=== PATIENT | male | born 1990 | race Two or more races ===

== ENCOUNTER 2023-08-31 16:21 | Inpatient (IN) | payer MEDICAID ==
[~2023-08-31] VITALS: Ht 177.8 cm; Wt 92.1 kg
[2023-08-31] MEDS: LEVETIRACETAM 500MG PREMIX 100 ML IV ONE (16:45)
[2023-08-31] MEDS ORDERED: LEVETIRACETAM 500MG PREMIX 100 ML IV ONE (16:45)
[2023-08-31 18:43] LABS: HEMOGLOBIN. 18.7 g/dL (14.0-18.0); MEAN CORPUSCULAR HEMOGLOBIN 30.1 pg (28.0-32.0); MEAN CORPUSCULAR VOLUME 88.4 fL (80.0-94.0); MEAN PLATELET VOLUME 9.3 fl (7.4-10.4); PLATELET 392 x1000/uL (130-400); RED BLOOD CELL COUNT 6.22 mill/uL (4.7-6.1); RED CELL DISTRIBUTION WIDTH 14.5 % (11.6-14.6)
[2023-08-31 18:44] LABS: DIFFERENTIAL COMMENT 1
[2023-08-31 18:48] LABS: CHLORIDE 98 mEq/L (98-107); POTASSIUM 3.5 mEq/L (3.5-5.1); SODIUM 138 mEq/L (136-145)
[2023-08-31 18:49] LABS: CARBON DIOXIDE 23 mEq/L (21-32)
[2023-08-31 18:50] LABS: CALCIUM 9.4 mg/dL (8.7-10.4)
[2023-08-31 18:54] LABS: CREATININE 3.3 mg/dL (0.6-1.3)
[2023-08-31 18:55] LABS: GLUCOSE 120 mg/dL (70-105); UREA NITROGEN BLOOD 68 mg/dL (9-23)
[2023-08-31 18:56] LABS: ALANINE AMINOTRANSFERASE 194 IU/L (10-49); ALBUMIN 5.1 g/dL (3.2-4.8); ASPARTATE AMINOTRANSFERASE 288 IU/L (<34); LACTIC ACID 2.5 mmol/L (0.4-2.0)
[2023-08-31 18:57] LABS: BILIRUBIN TOTAL 0.7 mg/dL (0.1-1.0); PROTEIN TOTAL 9.5 g/dL (6.0-8.3)
[2023-08-31 19:07] LABS: TROPONIN I HIGH SENSITIVITY 227 ng/L (3.0-53)
[2023-08-31 19:35] LABS: PLATELET ESTIMATE NORMAL
[2023-08-31] MEDS: LEVETIRACETAM 500MG PREMIX 100 ML IV NR (19:36)
[2023-08-31] MEDS: SODIUM CHLORIDE 0.9% 1000ML BAG (SEPSIS BOLUS) IV ONE (19:53)
[2023-08-31] MEDS: ASPIRIN 325MG EC TABLET PO ONE (19:56)
[2023-08-31] MEDS: CEFTRIAXONE 1GM/50ML 50 ML IV ONE (20:40)
[2023-08-31] MEDS ORDERED: CLINDAMYCIN 600 MG in DEXTROSE 5% WATER 50 ML IV ONE (20:45)
[2023-08-31] MEDS ORDERED: CLINDAMYCIN 600MG PREMIX 50 ML IV NR (21:00)
[2023-08-31] MEDS: LORAZEPAM 2MG/ML INJ IV ONE (22:13)
[2023-08-31 23:06] VITALS: BP 144/97; PULSE 106; RESP 18; TEMP 97
[2023-08-31] MEDS ORDERED: LEVE1000 PO (23:49)
[2023-09-01] MEDS: SODIUM CHLORIDE 0.9% 1,000 ML IV SCH (00:05)
[2023-09-01 00:25] LABS: HEMATOCRIT 57.4 % (42.0-52.0); HEMOGLOBIN 19.3 g/dL (14.0-18.0); MEAN CORPUSCULAR HEMOGLOBIN 30.2 pg (28.0-32.0); MEAN CORPUSCULAR HGB CONC 33.7 g/dL (31.0-37.0); MEAN CORPUSCULAR VOLUME 89.7 fL (80.0-94.0); RED CELL DISTRIBUTION WIDTH 14.4 % (11.6-14.6); WHITE BLOOD COUNT 24.7 x1000/uL (4.5-11.0)
[2023-09-01 00:34] VITALS: BP 144/97; PULSE 106; RESP 18; TEMP 97
[2023-09-01 02:35] LABS: CLARITY URINE CLOUDY (CLEAR); COLOR URINE YELLOW (YELLOW); GLUCOSE URINE NEGATIVE (NEGATIVE); KETONES URINE 1+ (NEGATIVE); LEUKOCYTE ESTERASE URINE NEGATIVE (NEGATIVE); NITRITE URINE NEGATIVE (NEGATIVE); OCCULT BLOOD URINE 2+ (NEGATIVE); PH URINE 5.5 (4.5-8.0); PROTEIN URINE 1+ (NEGATIVE); SPECIFIC GRAVITY URINE 1.014 (1.005-1.030); UROBILINOGEN URINE 0.2 E.U./dL (0.2-1.0)
[2023-09-01 02:41] LABS: *AMPHETAMINES SCREEN URINE NEGATIVE (NEGATIVE)
[2023-09-01 02:42] LABS: *BARBITURATES SCREEN URINE NEGATIVE (NEGATIVE); *BENZODIAZEPINES SCREEN URINE PRESUMPTIVE POSITIVE (NEGATIVE); *COCAINE SCREEN URINE NEGATIVE (NEGATIVE); CANNABINOID URINE SCREEN PRESUMPTIVE POSITIVE (NEGATIVE); ECSTASY MDMA SCREEN URINE NEGATIVE (NEGATIVE); METHADONE URINE SCREEN Neg (NEGATIVE); OPIATES URINE SCREEN NEGATIVE (NEGATIVE); PHENCYCLIDINE URINE SCREEN NEGATIVE (NEGATIVE)
[2023-09-01 04:00] VITALS: BP 164/94; PULSE 112; RESP 16; TEMP 97.7
[2023-09-01 05:17] LABS: PLATELET 348 x1000/uL (130-400)
[2023-09-01 05:50] LABS: HEMATOCRIT 51.8 % (42.0-52.0); HEMOGLOBIN 17.7 g/dL (14.0-18.0); MEAN CORPUSCULAR HEMOGLOBIN 29.8 pg (28.0-32.0); MEAN CORPUSCULAR HGB CONC 34.2 g/dL (31.0-37.0); MEAN CORPUSCULAR VOLUME 87.3 fL (80.0-94.0); PLATELET 280 x1000/uL (130-400); RED BLOOD CELL COUNT 5.93 mill/uL (4.7-6.1); WHITE BLOOD COUNT 19.5 x1000/uL (4.5-11.0)
[2023-09-01 06:00] LABS: CALCIUM 8.5 mg/dL (8.7-10.4); POTASSIUM 3.5 mEq/L (3.5-5.1)
[2023-09-01 06:06] LABS: CREATININE 2.5 mg/dL (0.6-1.3)
[2023-09-01 08:00] VITALS: BP 141/88; PULSE 59; RESP 17; TEMP 97.9
[2023-09-01] MEDS: LEVETIRACETAM 500MG TABLET PO SCH (08:31)
[2023-09-01] MEDS: AMLODIPINE 10MG TABLET PO SCH (08:32)
[2023-09-01 08:50] LABS: URIC ACID CRYSTALS URINE 3+ /lpf
[2023-09-01 08:51] LABS: BACTERIA URINE TRACE; RBC URINE 0-2 /hpf (0-2); SQUAMOUS EPITHELIAL CELL URINE RARE /lpf (RARE/1+); WBC URINE 0-2 /hpf (0-2)
[2023-09-01] MEDS ORDERED: LEVETIRACETAM 1000MG PREMIX 100 ML IV SCH (09:00)
[2023-09-01 12:00] VITALS: BP 135/94; PULSE 97; RESP 20; TEMP 97.1
[2023-09-01] MEDS ORDERED: LEVE1000 PO (13:09)
[2023-09-01 16:00] VITALS: BP 154/94; PULSE 90; RESP 20; TEMP 98.2
[2023-09-01 18:07] LABS: CREATINE KINASE 22953 IU/L (46-171)
[2023-09-01 20:00] VITALS: BP 119/81; PULSE 68; RESP 20; TEMP 98
[2023-09-01] MEDS: LORAZEPAM 2MG/ML INJ IV PRN (20:07)
[2023-09-01] MEDS: SODIUM CHLORIDE 0.9% 1,000 ML IV NR (23:28)
[2023-09-02] VITALS (7 sets, daily range): BP systolic 114–142; BP diastolic 57–88; PULSE 90–132; RESP 18–28; TEMP 97.6–98.5
[2023-09-02 08:11] LABS: BASOPHILS % 0.2 % (0.0-2.0); EOSINOPHILS % 0.2 % (0.0-5.0); HEMATOCRIT. 33.2 % (42.0-52.0); HEMOGLOBIN. 11.4 g/dL (14.0-18.0); LYMPHOCYTES % 20.9 % (20.0-50.0); MEAN CORPUSCULAR HEMOGLOBIN 30.1 pg (28.0-32.0); MEAN CORPUSCULAR HGB CONC 34.2 g/dL (31.0-37.0); MEAN CORPUSCULAR VOLUME 88.1 fL (80.0-94.0); MEAN PLATELET VOLUME 9.7 fl (7.4-10.4); MONOCYTES % 9.9 % (2.0-8.0); NEUTROPHILS % 68.8 % (40.0-76.0); PLATELET 290 x1000/uL (130-400); RED BLOOD CELL COUNT 3.77 mill/uL (4.7-6.1); RED CELL DISTRIBUTION WIDTH 13.8 % (11.6-14.6); WHITE BLOOD COUNT 18.1 x1000/uL (4.5-11.0)
[2023-09-02 08:37] LABS: POTASSIUM 3.8 mEq/L (3.5-5.1)
[2023-09-02 08:39] LABS: CALCIUM 8.1 mg/dL (8.7-10.4)
[2023-09-02 08:49] LABS: CREATININE 1.6 mg/dL (0.6-1.3)
[2023-09-02] MEDS ORDERED: SODIUM CHLORIDE 0.9% 250 ML IV ONE (09:45)
[2023-09-02] MEDS: SODIUM CHLORIDE 0.9% 250 ML IV ONE (09:55)
[2023-09-02] MEDS: PANTOPRAZOLE SODIUM 40 MG/VIAL IV SCH (11:32)
[2023-09-02] MEDS: METOPROLOL TARTRATE 25MG TABLET PO SCH (12:04)
[2023-09-02 13:06] LABS: CREATINE KINASE 6642 IU/L (46-171)
[2023-09-03] VITALS (12 sets, daily range): BP systolic 91–152; BP diastolic 56–98; PULSE 98–129; RESP 18–31; TEMP 97.4–98.4
[2023-09-03 07:28] LABS: CARBON DIOXIDE 23 mEq/L (21-32); CHLORIDE 107 mEq/L (98-107); POTASSIUM 3.5 mEq/L (3.5-5.1); SODIUM 141 mEq/L (136-145)
[2023-09-03 07:29] LABS: CALCIUM 8.4 mg/dL (8.7-10.4)
[2023-09-03 07:31] LABS: BASOPHILS % 0.2 % (0.0-2.0); EOSINOPHILS % 0.8 % (0.0-5.0); LYMPHOCYTES % 29.8 % (20.0-50.0); MEAN CORPUSCULAR HEMOGLOBIN 29.8 pg (28.0-32.0); MEAN CORPUSCULAR VOLUME 90.2 fL (80.0-94.0); MONOCYTES % 7.5 % (2.0-8.0); NEUTROPHILS % 61.7 % (40.0-76.0); PLATELET 232 x1000/uL (130-400); RED BLOOD CELL COUNT 2.99 mill/uL (4.7-6.1); RED CELL DISTRIBUTION WIDTH 13.8 % (11.6-14.6); WHITE BLOOD COUNT 16.6 x1000/uL (4.5-11.0)
[2023-09-03 07:33] LABS: IRON 59 ug/dL (65-175)
[2023-09-03 07:34] LABS: CREATININE 1.3 mg/dL (0.6-1.3); GLUCOSE 92 mg/dL (70-105); UREA NITROGEN BLOOD 21 mg/dL (9-23)
[2023-09-03 07:36] LABS: TOTAL IRON BINDING CAPACITY 135 ug/dl (250-425)
[2023-09-03 08:21] LABS: FERRITIN 250 ng/mL (22-322)
[2023-09-03 08:23] LABS: VITAMIN B12 SERUM 220 pg/mL (211-911)
[2023-09-03 08:46] LABS: HEMOGLOBIN. 8.9 g/dL (14.0-18.0)
[2023-09-03] MEDS: SUCRALFATE 1G TABLET PO SCH (11:39)
[2023-09-03] MEDS: CYANOCOBALAMIN 1000MCG/ML VIAL IM SCH (11:39)
[2023-09-03] MEDS ORDERED: LEVOFLOXACIN 500MG PREMIX 100 ML IV SCH (12:30)
[2023-09-03 13:02] LABS: INR 1.1; PROTHROMBIN TIME 11.9 sec (9.6-11.0)
[2023-09-03] MEDS: LEVOFLOXACIN 750MG PREMIX 150 ML IV SCH (14:48)
[2023-09-03 15:01] LABS: PHOSPHORUS 2.3 mg/dL (2.5-4.9)
[2023-09-03] MEDS ORDERED: NALOXONE HCL 0.4MG/ML VIAL IV PRN (20:15)
[2023-09-03] MEDS: HYDROCODONE/ACETAMINOPHEN 10/325MG TABLET PO PRN (20:37)
[2023-09-04] VITALS (16 sets, daily range): BP systolic 104–148; BP diastolic 56–102; PULSE 89–119; RESP 18–29; TEMP 97.3–98.7; O2SAT 96
[2023-09-04 07:13] LABS: BASOPHILS % 0.2 % (0.0-2.0); EOSINOPHILS % 2.3 % (0.0-5.0); HEMATOCRIT. 21.5 % (42.0-52.0); HEMOGLOBIN. 7.4 g/dL (14.0-18.0); LYMPHOCYTES % 36.7 % (20.0-50.0); MEAN CORPUSCULAR HEMOGLOBIN 29.8 pg (28.0-32.0); MEAN CORPUSCULAR HGB CONC 34.3 g/dL (31.0-37.0); MEAN CORPUSCULAR VOLUME 86.9 fL (80.0-94.0); MEAN PLATELET VOLUME 9.1 fl (7.4-10.4); MONOCYTES % 8.2 % (2.0-8.0); NEUTROPHILS % 52.6 % (40.0-76.0); PLATELET 257 x1000/uL (130-400); RED BLOOD CELL COUNT 2.48 mill/uL (4.7-6.1); RED CELL DISTRIBUTION WIDTH 13.4 % (11.6-14.6); WHITE BLOOD COUNT 13.1 x1000/uL (4.5-11.0)
[2023-09-04 07:17] LABS: CARBON DIOXIDE 24 mEq/L (21-32); CHLORIDE 106 mEq/L (98-107); POTASSIUM 3.5 mEq/L (3.5-5.1); SODIUM 139 mEq/L (136-145)
[2023-09-04 07:18] LABS: CALCIUM 7.9 mg/dL (8.7-10.4)
[2023-09-04 07:23] LABS: CREATININE 1.2 mg/dL (0.6-1.3); GLUCOSE 90 mg/dL (70-105); UREA NITROGEN BLOOD 13 mg/dL (9-23)
[2023-09-04] MEDS ORDERED: SUCR1TAB MT (08:03)
[2023-09-04] MEDS ORDERED: OMEP40CA20 MT (08:03)
== END 2023-09-04 16:36 | disposition home or self-care (01) | DRG 241 ==
LOC: ER 16:21 → 8WST 21:45 → 5EST 09-02 11:00
PROVIDERS: ADMIT Internal Medicine; ATTEND Internal Medicine
PROC: 30233N1 Transfusion of Nonautologous Red Blood Cells into Peripheral Vein, Percutaneous Approach (ICD-10-PCS; principal; 2023-09-04)
DX: K26.4 Chronic or unspecified duodenal ulcer with hemorrhage (principal); N17.0 Acute kidney failure with tubular necrosis; G40.409 Other generalized epilepsy and epileptic syndromes, not intractable, without status epilepticus; M62.82 Rhabdomyolysis; I10 Essential (primary) hypertension; D64.9 Anemia, unspecified; F19.10 Other psychoactive substance abuse, uncomplicated; F12.10 Cannabis abuse, uncomplicated; F17.210 Nicotine dependence, cigarettes, uncomplicated; D72.829 Elevated white blood cell count, unspecified; Z90.49 Acquired absence of other specified parts of digestive tract
CPT/HCPCS: 36415; 71045; 74176; 76770; 80048; 80053; 80305; 81003; 82270; 82550; 82607; 82728; 82746; 83540; 83550; 83605; 83735; 83880; 84100; 84145; 84484; 85025; 85027; 85044; 86850; 86900; 86920; 87070; 87430; 93005; 99291; C9113; J0696; J1953; J1956; J2060; J3420; J3490; J7030; J7060; P9016